=== PATIENT | female | born 1985 | race American Indian/Alaskan Native ===

== ENCOUNTER 2016-09-06 02:42 | Emergency (ER) | payer MEDICAID ==
[2016-09-06] MEDS ORDERED: TYLENOL PO ONE ×2 (11:55→12:18)
--- NOTE | 2016-09-06 11:55 | Emergency Department Report ---
HPI - General Chief Complaint: Upper Respiratory Infection Time Seen by Provider: 09/06/16 11:26 - HPI HPI: Patient here reports that she's having cough and chills throat that has been going on for a couple weeks. She said it started out with coughing a couple weeks ago and now she is having sore throat and chills. Denies taking any over- the-counter medication. Patient is 17 weeks and she is [employer]. She said that her last [employer] visit she had ultrasound shows that the baby was in her uterus and no problem with the baby per patient. Patient denies any abdominal pain, nausea vomiting, vaginal bleeding or discharge. Eyes any urinary burning frequency or urgency. Denies any drooling or difficulty swallowing. Denies any shortness of breath. Reports nasal congestion with sinus pressure. ED Past Medical Hx - Past Medical History Previous Medical History?: No Hx Hypertension: No Hx Congestive Heart Failure: No Hx Diabetes: No Hx Deep Vein Thrombosis: No Hx Renal Disease: No Hx Sickle Cell Disease: No Hx Seizures: No Hx Asthma: No Hx COPD: No Hx HIV: No - Surgical History Past Surgical History?: Yes Additional Surgical History: x1 - Family History Family history: no significant - Social History Smoking Status: Never Smoker Substance Use Type: None - Medications Home Medications: Home Medications Medication Instructions Recorded Confirmed Last Taken Type Acetaminophen [Acetaminophen TAB] 500 mg PO Q8H PRN #15 tablet 09/06/16 Unknown Rx Azithromycin [Zithromax Z-LUCÍA] 250 mg PO DAILY #6 tab 09/06/16 Unknown Rx guaiFENesin [Mucinex] 600 mg PO BID #10 tab.er.12h 09/06/16 Unknown Rx ED Review of Systems ROS: Stated complaint: COUGH/SORE THROAT Other details as noted in HPI Comment: All other systems reviewed and negative Constitutional: chills Eyes: denies: eye discharge ENT: throat pain, congestion. denies: ear pain Respiratory: cough. denies: shortness of breath, SOB with exertion, SOB at rest , stridor, wheezing Cardiovascular: denies: chest pain, palpitations, edema, syncope Gastrointestinal: denies: abdominal pain, nausea, vomiting Genitourinary: denies: urgency, dysuria, frequency, hematuria, discharge, abnormal menses Musculoskeletal: denies: back pain, arthralgia Skin: denies: rash Neurological: denies: headache, weakness, numbness, paresthesias, abnormal gait , vertigo Physical Exam - Physical Exam Vital Signs: Vital Signs 09/06/16 02:56 Temperature 99.7 F H Pulse Rate 110 H Respiratory 18 Rate Blood Pressure 120/76 O2 Sat by Pulse 97 Oximetry Vital Signs 09/06/16 09/06/16 02:56 12:50 Temperature 99.7 F H 99.5 F Pulse Rate 110 H 102 H Respiratory 18 18 Rate Blood Pressure 120/76 Blood Pressure 138/82 [Left] O2 Sat by Pulse 97 100 Oximetry General: This is a 31-year-old female well-nourished well-developed and nontoxic in appearance. Physical Exam: Head: Normocephalic atraumatic Mouth: Moist, no pharyngeal exudate or erythema. Uvula is midline and oral airway is patent. No facial swelling. No peritonsillar abscesses. Nose: Congested with erythema to mucosa. Clear Drainage. Maxillary and frontal sinuses nontender to palpate Neck: Supple, no C-spine tenderness, no tracheal deviation. Nontender to palpate. no adenopathy Ears: Bilateral TMs congested without erythema. Bilateral EAC without any redness swelling or drainage. Abdomen: Soft, nontender to palpate in all quadrants, normal bowel sounds in all quadrant and negative CVA tenderness bilaterally. Eyes: Bilateral pupils equal and reactive to light, bilateral EOM intact. Bilateral sclera and conjunctiva without injection. Normal accommodation. No Lungs: Clear to auscultate bilaterally no rhonchi wheezes or rales. Normal work of breathing . Patient with dry cough extremity; No CCE. +2 pulses. No neurovascular compromise Cardiovascular: S1-S2, Tachycardic @ 110 regular rhythm. No murmurs. Skin: clean Dry and intact no rash no lesions Psych: Normal mood and behavior ED Course Vital Signs 09/06/16 02:56 Temperature 99.7 F H Pulse Rate 110 H Respiratory 18 Rate Blood Pressure 120/76 O2 Sat by Pulse 97 Oximetry Vital Signs 09/06/16 09/06/16 02:56 12:50 Temperature 99.7 F H 99.5 F Pulse Rate 110 H 102 H Respiratory 18 18 Rate Blood Pressure 120/76 Blood Pressure 138/82 [Left] O2 Sat by Pulse 97 100 Oximetry heart tones at 153 bpm. - Reevaluation(s) Reevaluation #1: 04/04/17 12:51 Patient reevaluated and her temperature and heart rate trending down. I spoke with Dr. Chi was okay with patient being discharged home. He is able to tolerate oral liquids in emergency room. ED Medical Decision Making - Medical Decision Making ED course: Patient here complaining of cough, congestion and sore throat. Using Centor criteria ,strep throat was ruled out. is at 17 weeks. She is not having any related issues. heart tone 153 bpm. I discussed the patient that this most physical findings she has a upper respiratory tract infection and sinusitis. I discussed with her that medications been having her symptoms for 2 weeks I will go ahead and put her on antibiotic, Tylenol and Mucinex. I discussed with her that she needs to call her [employer] to let them know that she was seen in emergency room for sinus infection. Patient with heart rate of 110 and temperature is 99.9. She was given Tylenol 650 mg in emergency room which brought her temperature down to 99.5 and heart rate was down to 102. Patient feels better and she is drinking juice in emergency room without any difficulties. Discharged home with prescription for Z-Lucía, Tylenol and Mucinex. Critical care attestation.: If time is entered above; I have spent that time in minutes in the direct care of this critically ill patient, excluding procedure time. ED Disposition Clinical Impression: Sinusitis Qualifiers: Sinusitis location: unspecified location Chronicity: acute Recurrence: not specified as recurrent Qualified Code(s): J01.90 - Acute sinusitis, unspecified Upper respiratory infection Qualifiers: URI type: unspecified URI Qualified Code(s): J06.9 - Acute upper respiratory infection, unspecified Acute pharyngitis Qualifiers: Pharyngitis/tonsillitis etiology: unspecified etiology Qualified Code(s): J02.9 - Acute pharyngitis, unspecified Disposition: DISCHARGED TO HOME OR SELFCARE Is pt being admited?: No Does the pt Need Aspirin: No Condition: Stable Instructions: Upper Respiratory Infection (ED), Pharyngitis (ED), Sinusitis (ED ) Additional Instructions: Please using [id number] sinus nasal wash to flush sinuses out Call your [employer] today to let them know that you were in the emergency room and treated for sinus infection. Prescriptions: Acetaminophen [Acetaminophen TAB] 500 mg PO Q8H PRN #15 tablet PRN Reason: Fever, sore throat Azithromycin [Zithromax Z-LUCÍA] 250 mg PO DAILY #6 tab guaiFENesin [Mucinex] 600 mg PO BID #10 tab.er.12h Referrals: PRIMARY CARE, [Primary Care Provider] - 2-3 Days Forms: Work/School Release Form(ED)
[2016-09-06 12:51] VITALS: BP 138/82
== END 2016-09-06 13:17 | disposition home or self-care (01) ==
LOC: ED 02:42
DX: O99.512 Diseases of the respiratory system complicating pregnancy, second trimester (principal); J06.9 Acute upper respiratory infection, unspecified; J02.9 Acute pharyngitis, unspecified; J01.90 Acute sinusitis, unspecified; Z3A.17 17 weeks gestation of pregnancy
CPT/HCPCS: 99282

== ENCOUNTER 2017-02-08 09:37 | Inpatient (IN) | payer MEDICAID ==
--- NOTE | 2017-02-07 17:58 | History and Physical Report ---
History of Present Illness Date of examination: 02/03/17 Date of admission: 02/08/17 Chief complaint: here for repeat c/s History of present illness: Pt is here for repeat c/s. All risk, benefits, and alternatives were d/w pt. Consents were signed and placed on the chart. EDC Calculations LMP: 02/12/2017 EDC Confirmation: 02/12/2017 Gestational Age: 10 5/7 weeks Past History : 3 Term Births: 1 Premature Births: 0 Living Children: 1 Para: 1 Mult. Births: 0 Prev : 1 Prev. attempt? 0 Aborta: 1 Elect. Ab: 0 Spont. Ab: 1 Ectopics: 0 # 1 Delivery date: 2002 Weeks Gestation: ? [place] [facility] [place] Comments: No D&C # 2 Delivery date: 04/09/2013 Weeks Gestation: 40 Delivery type: Hours of labor: 12 Anesthesia type: epidural [facility] Sex: Male weight: 8-7 Name: Marcelo Comments: Failed induction NRFHT Past Medical History: Negative Past Medical History Past Surgical History: (04/09/2013) Family History Summary: Other family member - Has No Family History of Ovarvian Cancer - Entered On: Other family member - Has No Family History of Colon Cancer - Entered On: 2016 Other family member - Has No Family History of Breast Cancer - Entered On: 2016 Other family member - Has Family History of Hypertension - Entered On: 07/22/2016 Other family member - Has Family History of Diabetes - Entered On: 07/22/2016 Other family member - Has Family History of CVA or Stroke - Entered On: 2016 Social History: Logid[employer] unemployed Patient is single Risk Factors: Smoked Tobacco Use: Never smoker Alcohol use: yes Drinks per day: social Dietary Counseling: pn yes Past Medical History Surgery (Non-mixer blender): (04/09/2013) Abnormal PAP: negative Uterine Anomaly: negative Social Hx: Logid[employer] unemployed Patient is single Infection History Hx of STD: none Personal hx. of genital herpes: no Partner hx. of genital herpes: no Genetic History Congenital Heart Defect: Mom: no Dad: no Norbert Disease: Mom: no Dad: no Thalassemia Mom: no Dad: no Neural Tube Defect Mom: no Dad: no Down's Syndrome Mom: no Dad: no Jose-Sachs Mom: no Dad: no Sickle Cell Disease/Trait Mom: no Dad: no Hemophilia Mom: no Dad: no Muscular Dystrophy Mom: no Dad: no Cystic Fibrosis Mom: no Dad: no [place] Chorea Mom: no Dad: no Mental Retardation Mom: no Dad: no Fragile X Mom: no Dad: no Other Genetic/Chromosomal Disorder Mom: no Dad: no Child w/other defect Mom: no Dad: no Active Medications: FORMULA 27-1 MG ORAL TABS ( VIT-FE FUMARATE-FA) 1 po q day as directed Current Allergies: No known allergies Past History Past Medical History: no pertinent history Past Surgical History: section - Obstetrical History : 2 Medications and Allergies Allergies Allergy/AdvReac Type Severity Reaction Status Date / Time No Known Allergies Allergy Verified 08/07/15 10:13 Home Medications Medication Instructions Recorded Confirmed Last Taken Type Acetaminophen [Acetaminophen TAB] 500 mg PO Q8H PRN #15 tablet 09/06/16 Unknown Rx Azithromycin [Zithromax Z-LUCÍA] 250 mg PO DAILY #6 tab 09/06/16 Unknown Rx guaiFENesin [Mucinex] 600 mg PO BID #10 tab.er.12h 09/06/16 Unknown Rx Active Meds: Active Medications Citric Acid/Sodium Citrate (Bicitra) 30 ml PO ONCE ONE Stop: 02/08/17 06:01 Famotidine (Pepcid) 20 mg IV ONCE ONE Stop: 02/08/17 06:01 Cefazolin Sodium (Ancef/Sterile Water 2 Gm/20 Ml) 2 gm in 20 mls @ 80 mls/hr IV PREOP NR PRN Reason: Protocol Lactated Ringer's (Lactated Ringers) 1,000 mls @ 2,250 mls/hr IV PREOP MARCELLA Stop: 02/08/17 18:27 Oxytocin/Sodium Chloride (Pitocin/Ns 20 Unit/1000ml Drip) 20 units in 1,000 mls @ 0 mls/hr IV TITR MARCELLA PRN Reason: As Directed Metoclopramide HCl (Reglan) 10 mg IV ONCE ONE Stop: 02/08/17 06:01 - Physical Exam Cardiovascular: Normal S1, Normal S2 Lungs: Positive: Clear to auscultation, Normal air movement Abdomen: Positive: normal appearance, soft Genitourinary (Female): Positive: normal external genitalia, normal perenium - Obstetrical FHR: auscultation normal Results All other labs normal. Assessment and Plan - Patient Problems (1) 39 weeks gestation of Current Visit: Yes Status: Acute (2) Previous delivery affecting Current Visit: Yes Status: Acute Plan to address problem: -consents signed -to OR for repeat c/s
[2017-02-08] MEDS ORDERED: ANCEF/STERILE WATER 2 GM/20 ML 2 GM/20 ML SYRINGE IV NR (10:00)
[2017-02-08] MEDS ORDERED: PEPCID IV NR (10:00)
[2017-02-08] MEDS ORDERED: REGLAN IV NR (10:00)
[2017-02-08] MEDS ORDERED: BICITRA PO NR (10:00)
[2017-02-08] MEDS ORDERED: PITOCin/NS 20 UNIT/1000ML DRIP 20 UNITS/1,000 ML BAG IV SCH (10:00)
[2017-02-08] MEDS: LACTATED RINGERS 1,000 ML IV SCH ×2 (10:20→13:47)
[2017-02-08 10:56] LABS: Basophils % (Auto) 0.3 % (0.0-1.8); Eosinophils % (Auto) 0.4 % (0.0-4.3); Hematocrit 30.6 % (30.3-42.9); Mean Corpuscular HGB Conc 33 % (30-34); Mean Corpuscular Volume 79 fl (79-97); Platelet Count 320 K/mm3 (140-440); Red Blood Count 3.88 M/mm3 (3.65-5.03); Red Cell Distribution Width 16.9 % (13.2-15.2); White Blood Count 8.6 K/mm3 (4.5-11.0)
[2017-02-08 10:58] LABS: Mean Corpuscular Hemoglobin 26 pg (28-32)
[2017-02-08] MEDS ORDERED: BENADRYL IV PRN ×2 (11:27→11:32)
[2017-02-08] MEDS ORDERED: TORADOL IV PRN (11:27)
[2017-02-08] MEDS ORDERED: ZOFRAN IV PRN (11:27)
[2017-02-08] MEDS ORDERED: DILAUDID IV PRN (11:27)
[2017-02-08] MEDS ORDERED: NARCAN 0.4 MG/1 ML IV PRN ×2 (11:27→13:07)
--- NOTE | 2017-02-08 11:27 | Anesthesia Day of Surgery ---
Anesthesia Day of Surgery - Day of Surgery Patient Examined: Yes Patient H&P Reviewed: Yes Patient is NPO: Yes
--- NOTE | 2017-02-08 11:27 | Anesthesia Consultation ---
Anesthesia Consult and Med Hx Date of service: 02/08/17 - Airway Anesthetic Teeth Evaluation: Good ROM Head & Neck: Adequate Mental/Hyoid Distance: Adequate Mallampati Class: Class II Intubation Access Assessment: Probably Good - Pre-Operative Health Status ASA Pre-Surgery Classification: ASA2 Proposed Anesthetic Plan: Epidural, Spinal - Pulmonary Hx Asthma: No COPD: No Hx Pneumonia: No - Cardiovascular System Hx Hypertension: No - Central Nervous System Hx Seizures: No Hx Psychiatric Problems: No - Endocrine Hx Renal Disease: No Hx End Stage Renal Disease: No Hx Hypothyroidism: No Hx Hyperthyroidism: No - Hematic Hx Anemia: No Hx Sickle Cell Disease: No - Other Systems Hx Alcohol Use: No
[2017-02-08] MEDS ORDERED: MORPHINE IV PRN ×2 (11:32→11:34)
[2017-02-08] MEDS ORDERED: MORPHINE ONE (11:34)
[2017-02-08] MEDS ORDERED: SODIUM CHLORIDE FLUSH SYRINGE 10 ML IV SCH (12:00)
[2017-02-08] MEDS ORDERED: ZOFRAN ONE (12:38)
[2017-02-08] MEDS ORDERED: TORADOL ONE (12:46)
[2017-02-08] MEDS ORDERED: NACL 0.9% 1000 ML 1,000 ML ONE (12:48)
--- NOTE | 2017-02-08 13:05 | Operative Report ---
Operative Report Operative Report: Date of procedure: 02/08/2017 Pre-operative diagnosis: 39 weeks gestation Previous section 1 Post-operative diagnosis: Same Procedure name(s): Repeat low transverse section via Pfannenstiel skin incision Surgeon: Dr. Meeks Train Starter: SATURNINO Anesthesia: Epidural EBL: 800 mL Urine output:25 mL of urine out clear at the end of the procedure Fluids: 1300 mL Findings: Liveborn female weight 7 lbs. 4 oz. Apgars of 8 and 9 at one and 5 minutes Grossly normal fallopian tubes and ovaries bilaterally Normal uterus Indications: Patient presents for repeat section. All risks benefits and alternatives were discussed with the patient. Consents were signed and placed on the chart. Patient was given ample time to ask questions regarding procedure prior to signing consent forms. Procedure: Patient was taking to the operating room. Patient was then prepped and draped in sterile fashion after anesthesia was found to be adequate. A low transverse skin incision was made with the scalpel through previous incisional scar and carried down to the underlying layer of fascia with the Bovie. The fascia was then incised in the midline and this incision was extended bilaterally with the Bovie. The superior aspect of the fascia was grasped with Travis clamps tented upward and dissected off of the anterior rectus muscles with the scalpel. In similar fashion the inferior aspect of the fascia was grasped with Travis clamps tented upward and dissected off of the anterior rectus muscles. The rectus muscles were then bluntly divided in the midline. The peritoneum was identified and entered into sharply. The Feliberto retractor was placed. The bladder blade was placed. The bladder flap was created using Metzenbaum scissors. The bladder blade was replaced. A lower transverse uterine incision was made with the scalpel and extended bilaterally with the bandage scissors. Artificial rupture of membranes was performed yielding clear amniotic fluid. The 's head was then delivered atraumatically. The anterior shoulder and rest of delivered without difficulty. Nuchal cord 1 was noted and easily reduced. The umbilical cord was clamped x2. The cord was cut. The was then placed in sterile bassinet. Cord blood was collected. The placenta was manually extracted in its entirety. The uterus was exteriorized and cleared of all clots and debris. The uterine incision was closed using 0 Vicryl in a running locking fashion. A second imbricating layer of the same suture was then created. The posterior cul-de-sac was copiously irrigated. The uterus was returned to the abdomen. The gutters were also irrigated. The anterior rectus muscles were reapproximated using 3-0 Vicryl. The anterior rectus fascia was reapproximated using 0 Vicryl in a running fashion. The subcuticular fat was reapproximated using 2-0 Vicryl in a running fashion. The skin was reapproximated with 4-0 Monocryl in a subcuticular stitch. The patient tolerated the procedure well. Sponge lap and needle counts were all correct x3. Patient was taken to the recovery room awake and in stable condition.
[2017-02-08] MEDS ORDERED: LANSINOH TP PRN (13:07)
[2017-02-08] MEDS ORDERED: TUCKS PAD TP PRN (13:07)
[2017-02-08] MEDS ORDERED: NORCO 5/325 PO PRN (13:07)
--- NOTE | 2017-02-08 14:48 | Post Anesthesia Evaluation ---
- Post Anesthesia Evaluation Patient Participated: Yes Airway Patent: Yes Stable Respiratory Function: Yes Nausea/Vomiting: No Temp > 96.8F: Yes Pain Manageable: Yes Adequeate Hydration: Yes Anesthesia Complications: No Block Receding Appropriately: Not Applicable Patient on Ventilator: No
[2017-02-08] MEDS: ANCEF/NS 1 GM/50 ML 1 GM/50 ML BAG IV SCH (18:07)
[2017-02-08] MEDS ORDERED: LACTATED RINGERS 1,000 ML IV SCH (22:00)
[2017-02-09 01:17] LABS: Hematocrit 28.8 % (30.3-42.9); Hemoglobin 9.4 gm/dl (10.1-14.3)
[2017-02-09] MEDS: ANCEF/NS 1 GM/50 ML 1 GM/50 ML BAG IV SCH (02:04)
[2017-02-09] MEDS ORDERED: BOOSTRIX IM ONE (06:08)
--- NOTE | 2017-02-09 06:13 | Progress Note ---
Assessment and Plan - Patient Problems (1) delivery delivered Onset Date: ~02/08/17 Current Visit: Yes Status: Acute Plan to address problem: pt resting quietly no c/o voiced VSS FF below umb Lochia small Dressing D&I, to be removed this AM. H&H 03/02 drop r/t blood loss from surgery Pt is asymptomatic Doing well s/p c/s. P: continue pathway Advance diet and activity. Pt request d/c tomorrow. Subjective - Subjective Date of service: 02/09/17 (no c/o voiced) Principal diagnosis: Day #1 s/p section Patient reports: appetite normal, voiding normally, pain well controlled, ambulating normally : doing well Objective - Vital Signs Latest vital signs: Vital Signs Temp Pulse Resp BP BP Pulse Ox 02/09/17 00:30 98.8 F 94 H 18 113/58 02/08/17 20:40 98.5 F 96 H 100/59 02/08/17 17:24 98.4 F 19 98/61 02/08/17 14:00 86 10 L 118/59 100 02/08/17 13:50 92 H 21 120/63 99 02/08/17 13:40 97.5 F L 102 H 19 127/68 104/56 98 02/08/17 13:30 85 13 113/61 99 02/08/17 13:20 84 13 119/57 100 02/08/17 13:10 87 20 124/63 98 02/08/17 13:00 87 20 120/60 98 02/08/17 12:51 107 H 14 100 02/08/17 11:06 105 H 137/48 Intake and Output 02/08/17 02/08/17 02/09/17 14:59 22:59 06:59 Intake Total 2575 925 480 Output Total 125 1000 Balance 2450 925 -520 Intake: IV 2575 925 ANCEF/NS 1 GM/50 ML 1 gm 50 In 50 ml @ 100 mls/hr IV Q8H MARCELLA Rx#:[id number] Lactated Ringers 1,000 ml 1000 @ 2250 mls/hr IV PREOP MARCELLA Rx#:[id number] Left Hand 125 PITOCin/NS 20 UNIT/1000ML 875 DRIP 20 units In 1,000 ml @ As Directed IV TITR MARCELLA Rx#:[id number] Intake, Free Water 480 Output: Urine 125 1000 Indwelling Catheter 1000 Other: Total, Output Amount 1000 Weight 223 lb Estimated Blood Loss 800 Patient Weight 02/09/17 06:59 Weight 223 lb - Exam Breasts: Present: normal Cardiovascular: Present: Regular rate Lungs: Present: Normal air movement Abdomen: Present: normal appearance, soft, normal bowel sounds Uterus: Present: normal, firm, fundal height below umbilicus Extremities: Present: normal Deep Tendon Reflex Grade: Normal +2 Incision: Present: normal, dry, intact - Labs Labs: Abnormal lab results 02/08/17 02/09/17 Range/Units 10:30 00:43 Hgb 10.0 L 9.4 L (10.1-14.3) gm/dl Hct 28.8 L (30.3-42.9) % MCH 26 L (28-32) pg RDW 16.9 H (13.2-15.2) % [place] % (Auto) 8.8 H (0.0-7.3) %
[2017-02-09] MEDS ORDERED: BENADRYL PO PRN (09:00)
[2017-02-09] MEDS ORDERED: NORCO 5/325 PO PRN (09:00)
[2017-02-09] MEDS: MOTRIN PO PRN ×2 (12:49→19:25)
--- NOTE | 2017-02-09 13:23 | Progress Note ---
Subjective Date of service: 02/09/17 Principal diagnosis: Day #1 s/p section Interval history: 1st POD after Patient is in the bed, comfortable. Pain is well under control. Ambulated well. No residual neurological deficit. Pruritus is mostly controlled with benadryl. No anesthesia complications. Objective - Constitutional Vitals: Vital Signs - 12hr 02/09/17 02/09/17 02/09/17 04:58 08:06 08:14 Temperature 98.6 F 98.3 F 98.3 F Pulse Rate 87 66 76 Respiratory 20 18 20 Rate Blood Pressure 108/50 [Left] Blood Pressure 101/52 108/76 [Right] 02/09/17 02/09/17 09:22 12:49 Temperature Pulse Rate Respiratory 20 20 Rate Blood Pressure [Left] Blood Pressure [Right] - Labs CBC & Chem 7: 02/09/17 00:43 Labs: Abnormal lab results 02/09/17 Range/Units 00:43 Hgb 9.4 L (10.1-14.3) gm/dl Hct 28.8 L (30.3-42.9) %
[2017-02-09] MEDS ORDERED: VISTARIL IM ONE (14:00)
[2017-02-09] MEDS: PERCOCET 5/325 PO PRN (19:25)
[2017-02-10] MEDS: MOTRIN PO PRN ×3 (02:49→14:42)
[2017-02-10] MEDS: PERCOCET 5/325 PO PRN ×3 (02:50→14:41)
[2017-02-10] MEDS ORDERED: MILK OF MAGNESIA PO PRN (06:09)
--- NOTE | 2017-02-10 08:21 | Progress Note ---
Assessment and Plan patient doing well, no complaints. desires d/c home today. VSSAF, H&H stable, asymptomatic for anemia, breast feeding without difficulty. plan for d/c home today with routine f/u in office. - Patient Problems (1) delivery delivered Onset Date: ~02/08/17 Current Visit: Yes Status: Acute Subjective - Subjective Date of service: 02/10/17 Principal diagnosis: Day #2 s/p section Patient reports: appetite normal, voiding normally, pain well controlled, flatus , ambulating normally, no dizzy ambulation, no nauseated [place]: doing well, nursing well Objective - Vital Signs Latest vital signs: Vital Signs Temp Pulse Resp BP 02/10/17 00:00 98.1 F 76 112/73 02/09/17 16:41 98.9 F 84 20 120/84 02/09/17 12:49 20 02/09/17 12:09 97.0 F L 80 20 110/70 02/09/17 09:22 20 Intake and Output 02/09/17 02/10/17 02/10/17 22:59 06:59 14:59 Intake Total 480 120 Balance 480 120 Intake: Oral 480 120 Other: Total, Intake Amount 240 120 Voiding Method Toilet # Voids 1 Void 1 1 - Exam Breasts: Present: normal, Cardiovascular: Present: Regular rate Lungs: Present: Clear to auscultation, Normal air movement Abdomen: Present: normal appearance, soft, normal bowel sounds Uterus: Present: normal, firm, fundal height at umbilicus Extremities: Present: normal Incision: Present: normal, dry, intact
--- NOTE | 2017-02-10 08:23 | Discharge Summary ---
Providers - Providers Date of Admission: 02/08/17 09:37 Date of discharge: 02/10/17 (desires d/c home) Attending physician: LESLY WHITMORE Primary care physician: LESLY WHITMORE Hospitalization Reason for admission: section Delivery: Procedure: repeat low transverse Incision: normal, dry, intact Other procedures: none complications: none Discharge diagnosis: IUP at term delivered baby: female Hospital course: uncomplicated repeat c/s Condition at discharge: Good Disposition: DC-01 TO HOME OR SELFCARE - Discharge Diagnoses (1) delivery delivered Status: Acute Plan - Discharge Medications Prescriptions: Docusate Sodium [Colace] 100 mg PO BID PRN #30 capsule PRN Reason: Constipation Ferrous Sulfate [Feosol 325 MG tab] 325 mg PO QDAY #30 tablet Ibuprofen [Motrin 800 MG tab] 800 mg PO Q8HR PRN #30 tablet PRN Reason: Pain oxyCODONE /ACETAMINOPHEN [Percocet 5/325] 1 tab PO Q4HR #30 tab - Provider Discharge Summary Activity: routine, no sex for 6 weeks, no heavy lifting 4 weeks, no strenuous exercise Diet: routine Instructions: routine Additional instructions: [] Smoking cessation referral if applicable(refer to patient education folder for contact #) [] Refer to [facility]'s [facility] Booklet Call your doctor immediately for: * Fever > 100.5 * Heavy vaginal bleeding ( >1 pad per hour) * Severe persistent headache * Shortness of breath * Reddened, hot, painful area to leg or breast * Drainage or odor from incision. * Keep incision clean and dry at all times and follow doctor's instructions regarding bathing/showering - Follow up plan Follow up: LESLY WHITMORE MD [Primary Care Provider] - 7 Days (Congratulations! please keep your appointment next week for your incision check. Call [phone] with any questions or concerns. )
[2017-02-10 15:29] VITALS: BP 112/74
== END 2017-02-10 15:01 | disposition home or self-care (01) | DRG 765 ==
LOC: APU 09:37 → OB 14:11
PROVIDERS: ADMIT Obstetrics & Gynecology; ATTEND Obstetrics & Gynecology
PROC: 10D00Z1 Extraction of Products of Conception, Low, Open Approach (ICD-10-PCS; principal; 2017-02-08)
PROC: 3E0234Z Introduction of Serum, Toxoid and Vaccine into Muscle, Percutaneous Approach (ICD-10-PCS; 2017-02-08)
DX: O34.211 Maternal care for low transverse scar from previous cesarean delivery (principal); D62 Acute posthemorrhagic anemia; Z3A.39 39 weeks gestation of pregnancy; Z37.0 Single live birth; O69.81X0 Labor and delivery complicated by cord around neck, without compression, not applicable or unspecified; Z23 Encounter for immunization; O90.81 Anemia of the puerperium
CPT/HCPCS: 36415; 85014; 85018; 85025; 86850; 86900; 86901; 99211; A6250; C9250; G0463; J0690; J1200; J1885; J2270; J2405; J2590; J2765; J3410; J7030; J7120

== ENCOUNTER 2017-02-12 00:58 | Emergency (ER) | payer MEDICAID ==
[2017-02-12 02:11] LABS: Basophils % (Auto) 0.3 % (0.0-1.8); Eosinophils % (Auto) 2.1 % (0.0-4.3); Hematocrit 29.3 % (30.3-42.9); Hemoglobin 9.5 gm/dl (10.1-14.3); Mean Corpuscular HGB Conc 33 % (30-34); Mean Corpuscular Volume 80 fl (79-97); Platelet Count 346 K/mm3 (140-440); Red Blood Count 3.68 M/mm3 (3.65-5.03); Red Cell Distribution Width 17.3 % (13.2-15.2); White Blood Count 8.6 K/mm3 (4.5-11.0)
[2017-02-12 02:15] LABS: Mean Corpuscular Hemoglobin 26 pg (28-32)
[2017-02-12 02:18] LABS: Anion Gap 18 mmol/L; BUN/Creatinine Ratio 16.25; Blood Urea Nitrogen 13 mg/dL (7-17); Calcium 8.5 mg/dL (8.4-10.2); Carbon Dioxide 22 mmol/L (22-30); Chloride 102.7 mmol/L (98-107); Creatine Kinase 377 units/L (30-135); Glucose 86 mg/dL (65-100); Potassium 3.9 mmol/L (3.6-5.0); Sodium 139 mmol/L (137-145)
[2017-02-12 06:50] LABS: INR 0.93 (0.87-1.13)
--- NOTE | 2017-02-12 09:00 | Emergency Department Report ---
ED Extremity Problem HPI - General Chief complaint: Extremity Injury, Lower Stated complaint: POST DELIVERY LEG PAIN Time Seen by Provider: 02/12/17 08:39 Source: patient Mode of arrival: Wheelchair Limitations: No Limitations - History of Present Illness Initial comments: 31 years old female status post section one week ago coming today was bilateral lower extremity pain and swelling started since left the hospital. Patient denied any chest pain or shortness of breath. Denied any fever or abdominal pain. MD Complaint: extremity pain, extremity swelling -: Gradual Severity scale (0 -10): 5 Quality: dull - Related Data Previous Rx's Medication Instructions Recorded Last Taken Type Acetaminophen [Acetaminophen TAB] 500 mg PO Q8H PRN #15 tablet 09/06/16 Unknown Rx Azithromycin [Zithromax Z-LUCÍA] 250 mg PO DAILY #6 tab 09/06/16 Unknown Rx guaiFENesin [Mucinex] 600 mg PO BID #10 tab.er.12h 09/06/16 Unknown Rx Docusate Sodium [Colace] 100 mg PO BID PRN #30 capsule 02/08/17 Unknown Rx Ferrous Sulfate [Feosol 325 MG tab] 325 mg PO QDAY #30 tablet 02/08/17 Unknown Rx Ibuprofen [Motrin 800 MG tab] 800 mg PO Q8HR PRN #30 tablet 02/08/17 Unknown Rx oxyCODONE /ACETAMINOPHEN [Percocet 1 tab PO Q4HR #30 tab 02/08/17 Unknown Rx 5/325] Allergies Allergy/AdvReac Type Severity Reaction Status Date / Time No Known Allergies Allergy Verified 08/07/15 10:13 ED Review of Systems ROS: Stated complaint: POST DELIVERY LEG PAIN Other details as noted in HPI Comment: All other systems reviewed and negative Constitutional: denies: chills, fever Respiratory: denies: cough, shortness of breath Cardiovascular: denies: chest pain, palpitations Gastrointestinal: denies: abdominal pain, nausea, vomiting Neurological: denies: headache ED Past Medical Hx - Past Medical History Previous Medical History?: Yes Hx Hypertension: No Hx Congestive Heart Failure: No Hx Diabetes: No Hx Deep Vein Thrombosis: No Hx Renal Disease: No Hx Sickle Cell Disease: No Hx Seizures: No Hx Asthma: No Hx COPD: No Hx HIV: No - Surgical History Past Surgical History?: Yes Additional Surgical History: x1 - Social History Smoking Status: Never Smoker - Medications Home Medications: Home Medications Medication Instructions Recorded Confirmed Last Taken Type Acetaminophen [Acetaminophen TAB] 500 mg PO Q8H PRN #15 tablet 09/06/16 Unknown Rx Azithromycin [Zithromax Z-LUCÍA] 250 mg PO DAILY #6 tab 09/06/16 Unknown Rx guaiFENesin [Mucinex] 600 mg PO BID #10 tab.er.12h 09/06/16 Unknown Rx Docusate Sodium [Colace] 100 mg PO BID PRN #30 capsule 02/08/17 Unknown Rx Ferrous Sulfate [Feosol 325 MG tab] 325 mg PO QDAY #30 tablet 02/08/17 Unknown Rx Ibuprofen [Motrin 800 MG tab] 800 mg PO Q8HR PRN #30 tablet 02/08/17 Unknown Rx oxyCODONE /ACETAMINOPHEN [Percocet 1 tab PO Q4HR #30 tab 02/08/17 Unknown Rx 5/325] ED Physical Exam - General Limitations: No Limitations General appearance: alert, in no apparent distress - Eye Eye exam: Present: normal appearance - ENT ENT exam: Present: normal exam - Neck Neck exam: Present: normal inspection - Respiratory Respiratory exam: Present: normal lung sounds bilaterally. Absent: respiratory distress, rales, decreased breath sounds - Cardiovascular Cardiovascular Exam: Present: regular rate, normal rhythm, normal heart sounds - GI/Abdominal GI/Abdominal exam: Present: soft, tenderness (appropriate tenderness secondary to recent section). Absent: distended, guarding, rebound, rigid, normal bowel sounds, mass, bruit, pulsatile mass, hernia - Extremities Exam Extremities exam: Present: normal inspection. Absent: full ROM, tenderness, normal capillary refill, pedal edema, calf tenderness - Back Exam Back exam: Present: normal inspection. Absent: CVA tenderness (R), CVA tenderness (L) - Neurological Exam Neurological exam: Present: alert, oriented X3, CN II-XII intact - Skin Skin exam: Present: warm, intact ED Course Vital Signs 02/12/17 02/12/17 02/12/17 01:19 05:45 06:01 Temperature 98.3 F Pulse Rate 91 H 99 H 99 H Respiratory 17 16 23 Rate Blood Pressure 130/83 129/85 Blood Pressure [Right] O2 Sat by Pulse 99 100 Oximetry 02/12/17 02/12/17 02/12/17 06:15 06:30 06:40 Temperature Pulse Rate 96 H 82 Respiratory 26 H 18 Rate Blood Pressure 129/85 126/69 Blood Pressure [Right] O2 Sat by Pulse 100 100 Oximetry 02/12/17 09:09 Temperature Pulse Rate 80 Respiratory 17 Rate Blood Pressure Blood Pressure 127/88 [Right] O2 Sat by Pulse 99 Oximetry - Reevaluation(s) Reevaluation #1: 02/12/17 12:37 Patient stated that she is feeling better no symptoms at this moment. ED Medical Decision Making - Lab Data Result diagrams: 02/12/17 01:45 02/12/17 01:45 Critical care attestation.: If time is entered above; I have spent that time in minutes in the direct care of this critically ill patient, excluding procedure time. ED Disposition Clinical Impression: Leg pain, bilateral Disposition: DC-01 TO HOME OR SELFCARE Is pt being admited?: No Does the pt Need Aspirin: No Condition: Stable Instructions: Leg Edema (ED) Referrals: PRIMARY CARE, [Primary Care Provider] - 3-5 Days
[2017-02-12 09:28] LABS: Bacteria,Urine 3+ /HPF (Negative); Bilirubin,Urine NEG (Negative); Blood,Urine LG (Negative); Ketones,Urine NEG (Negative); Leukocyte Esterase,Urine LG (Negative); Nitrite,Urine NEG (Negative); Urobilinogen,Urine < 2.0 mg/dL (<2.0)
[2017-02-12 12:38] VITALS: BP 125/80
== END 2017-02-12 12:59 | disposition home or self-care (01) ==
LOC: ED 00:58
DX: M79.604 Pain in right leg (principal); M79.605 Pain in left leg
CPT/HCPCS: 36415; 80048; 81001; 82550; 83735; 85025; 85610; 93970

== ENCOUNTER 2017-12-15 08:53 | Emergency (ER) | payer MEDICAID ==
[2017-12-15 09:16] VITALS: BP 138/60
--- NOTE | 2017-12-15 09:52 | Emergency Department Report ---
ED Animal Bite HPI - General Chief Complaint: Animal Bite Stated Complaint: INSECT BITE Time Seen by Provider: 12/15/17 09:45 Source: patient Mode of arrival: Ambulatory Limitations: No Limitations - History of Present Illness Initial Comments: Ms Sarabia is a 32 year-old woman who presents after insect bite. Stung on the right upper arm by large flying insect about 810 am. has localized pain and swelling. no chest pain, no trouble breathing, no mouth swelling. No other complaints. MD Complaint: other (insect bite) - Related Data Previous Rx's Medication Instructions Recorded Last Taken Type Acetaminophen [Acetaminophen TAB] 500 mg PO Q8H PRN #15 tablet 09/06/16 Unknown Rx Azithromycin [Zithromax Z-LUCÍA] 250 mg PO DAILY #6 tab 09/06/16 Unknown Rx guaiFENesin [Mucinex] 600 mg PO BID #10 tab.er.12h 09/06/16 Unknown Rx Docusate Sodium [Colace] 100 mg PO BID PRN #30 capsule 02/08/17 Unknown Rx Ferrous Sulfate [Feosol 325 MG tab] 325 mg PO QDAY #30 tablet 02/08/17 Unknown Rx Ibuprofen [Motrin 800 MG tab] 800 mg PO Q8HR PRN #30 tablet 02/08/17 Unknown Rx oxyCODONE /ACETAMINOPHEN [Percocet 1 tab PO Q4HR #30 tab 02/08/17 Unknown Rx 5/325] Allergies Allergy/AdvReac Type Severity Reaction Status Date / Time No Known Allergies Allergy Verified 08/07/15 10:13 ED Review of Systems ROS: Stated complaint: INSECT BITE Other details as noted in HPI Comment: All other systems reviewed and negative ED Past Medical Hx - Past Medical History Hx Hypertension: No Hx Congestive Heart Failure: No Hx Diabetes: No Hx Deep Vein Thrombosis: No Hx Renal Disease: No Hx Sickle Cell Disease: No Hx Seizures: No Hx Asthma: No Hx COPD: No Hx HIV: No - Surgical History Additional Surgical History: x1 - Social History Smoking Status: Never Smoker Substance Use Type: None - Medications Home Medications: Home Medications Medication Instructions Recorded Confirmed Last Taken Type Acetaminophen [Acetaminophen TAB] 500 mg PO Q8H PRN #15 tablet 09/06/16 Unknown Rx Azithromycin [Zithromax Z-LUCÍA] 250 mg PO DAILY #6 tab 09/06/16 Unknown Rx guaiFENesin [Mucinex] 600 mg PO BID #10 tab.er.12h 09/06/16 Unknown Rx Docusate Sodium [Colace] 100 mg PO BID PRN #30 capsule 02/08/17 Unknown Rx Ferrous Sulfate [Feosol 325 MG tab] 325 mg PO QDAY #30 tablet 02/08/17 Unknown Rx Ibuprofen [Motrin 800 MG tab] 800 mg PO Q8HR PRN #30 tablet 02/08/17 Unknown Rx oxyCODONE /ACETAMINOPHEN [Percocet 1 tab PO Q4HR #30 tab 02/08/17 Unknown Rx 5/325] ED Physical Exam - General Limitations: No Limitations General appearance: alert, in no apparent distress - Head Head exam: Present: atraumatic, normocephalic - Eye Eye exam: Present: normal appearance, EOMI - ENT ENT exam: Present: normal exam, normal orophraynx, mucous membranes moist - Neck Neck exam: Present: normal inspection. Absent: tenderness, meningismus - Respiratory Respiratory exam: Present: normal lung sounds bilaterally. Absent: respiratory distress, wheezes - Cardiovascular Cardiovascular Exam: Present: regular rate, normal rhythm - Extremities Exam Extremities exam: Present: normal inspection. Absent: tenderness - Neurological Exam Neurological exam: Present: alert, oriented X3 - Psychiatric Psychiatric exam: Present: normal affect, normal mood - Skin Skin exam: Present: warm, dry, intact, other (Right upper arm with about 1mm spot with 3cm of surrounding erythema. no fluctuance) ED Course Vital Signs 12/15/17 09:10 Temperature 98.2 F Pulse Rate 99 H Respiratory 20 Rate Blood Pressure 138/60 O2 Sat by Pulse 100 Oximetry - Reevaluation(s) Reevaluation #1: 12/15/17 09:53 Ms Sarabia is a 32 year-old woman who presents afetr insect bite to arm. no signs /symptoms of allergic reaction. Exam unremarkable. Given benadryl and naproxen. DC to home. Local tissue swelling after insect bite/sting. given care instructions, return precautions. Critical care attestation.: If time is entered above; I have spent that time in minutes in the direct care of this critically ill patient, excluding procedure time. ED Disposition Clinical Impression: Insect bite of arm, right Qualifiers: Encounter type: initial encounter Qualified Code(s): S40.861A - Insect bite ( nonvenomous) of right upper arm, initial encounter; W57.XXXA - Bitten or stung by nonvenomous insect and other nonvenomous arthropods, initial encounter Disposition: DC-01 TO HOME OR SELFCARE Is pt being admited?: No Does the pt Need Aspirin: No Condition: Stable Instructions: Insect Bite or Sting (ED) Referrals: PRIMARY CARE, [Primary Care Provider] - 3-5 Days
[2017-12-15] MEDS ORDERED: BENADRYL PO ONE (09:55)
[2017-12-15] MEDS ORDERED: NAPROSYN PO ONE (09:55)
== END 2017-12-15 10:12 | disposition home or self-care (01) ==
LOC: ED 08:53
DX: S40.861A Insect bite (nonvenomous) of right upper arm, initial encounter (principal); W57.XXXA Bitten or stung by nonvenomous insect and other nonvenomous arthropods, initial encounter; Y93.89 Activity, other specified; Y99.8 Other external cause status; Y92.89 Other specified places as the place of occurrence of the external cause
CPT/HCPCS: 99282

== ENCOUNTER 2018-08-08 13:13 | Emergency (ER) | payer MEDICAID ==
--- NOTE | 2018-08-08 13:22 | Emergency Department Report ---
Blank Doc - Documentation Documentation: This is a 33-year-old female that presents with lower back pain. Denies any u rinary symptoms. Denies any injuries or trauma. This initial assessment/diagnostic orders/clinical plan/treatment(s) is/are subject to change based on patient's health status, clinical progression and re- assessment by fellow clinical providers in the ED. Further treatment and workup at subsequent clinical providers discretion. Patient/guardians urged not to elope from the ED as their condition may be serious if not clinically assessed and managed. Initial orders include: 1- Patient sent to [facility] for further evaluation and treatment 2- UA
[2018-08-08 13:27] VITALS: BP 161/117
--- NOTE | 2018-08-08 14:05 | Emergency Department Report ---
ED Back Pain/Injury HPI - General Chief Complaint: Back Pain/Injury Stated Complaint: BACK PAIN Time Seen by Provider: 08/08/18 13:21 Source: patient Limitations: No Limitations - History of Present Illness Initial Comments: CC: "My back is killing me." HPI: Ms. Sarabia is a very pleasant 33 yo female who presents with left lower back pain for several days. Pain appears to migrate all over her back including right upper back. Pain is worse after sitting at a desk for 8 hours a day. Pain is sharp. No treatment attempted prior to arrival. Has had upper respiratory infectious symptoms for the past one month. Mild cough. mild nasal congestion. MD Complaint: back pain -: Gradual, days(s) (several) Similar Symptoms Previously: No Radiation: none Severity: moderate Quality: sharp, aching Consistency: intermittent Worsens With: movement - Related Data Previous Rx's Medication Instructions Recorded Last Taken Type Acetaminophen [Acetaminophen TAB] 500 mg PO Q8H PRN #15 tablet 09/06/16 Unknown Rx Azithromycin [Zithromax Z-LUCÍA] 250 mg PO DAILY #6 tab 09/06/16 Unknown Rx guaiFENesin [Mucinex] 600 mg PO BID #10 tab.er.12h 09/06/16 Unknown Rx Docusate Sodium [Colace] 100 mg PO BID PRN #30 capsule 02/08/17 Unknown Rx Ferrous Sulfate [Feosol 325 MG tab] 325 mg PO QDAY #30 tablet 02/08/17 Unknown Rx Ibuprofen [Motrin 800 MG tab] 800 mg PO Q8HR PRN #30 tablet 02/08/17 Unknown Rx oxyCODONE /ACETAMINOPHEN [Percocet 1 tab PO Q4HR #30 tab 02/08/17 Unknown Rx 5/325] traMADol [Ultram 50 MG tab] 50 mg PO Q6HR PRN #20 tablet 08/08/18 Unknown Rx Allergies Allergy/AdvReac Type Severity Reaction Status Date / Time No Known Allergies Allergy Verified 08/08/18 13:17 ED Review of Systems ROS: Stated complaint: BACK PAIN Other details as noted in HPI Comment: All other systems reviewed and negative Constitutional: denies: fever, malaise Respiratory: denies: cough, shortness of breath Cardiovascular: denies: chest pain ED Past Medical Hx - Past Medical History Hx Hypertension: No Hx Congestive Heart Failure: No Hx Diabetes: No Hx Deep Vein Thrombosis: No Hx Renal Disease: No Hx Sickle Cell Disease: No Hx Seizures: No Hx Asthma: No Hx COPD: No Hx HIV: No - Surgical History Past Surgical History?: Yes Additional Surgical History: x1 - Social History Smoking Status: Never Smoker Substance Use Type: None - Medications Home Medications: Home Medications Medication Instructions Recorded Confirmed Last Taken Type Acetaminophen [Acetaminophen TAB] 500 mg PO Q8H PRN #15 tablet 09/06/16 Unknown Rx Azithromycin [Zithromax Z-LUCÍA] 250 mg PO DAILY #6 tab 09/06/16 Unknown Rx guaiFENesin [Mucinex] 600 mg PO BID #10 tab.er.12h 09/06/16 Unknown Rx Docusate Sodium [Colace] 100 mg PO BID PRN #30 capsule 02/08/17 Unknown Rx Ferrous Sulfate [Feosol 325 MG tab] 325 mg PO QDAY #30 tablet 02/08/17 Unknown Rx Ibuprofen [Motrin 800 MG tab] 800 mg PO Q8HR PRN #30 tablet 02/08/17 Unknown Rx oxyCODONE /ACETAMINOPHEN [Percocet 1 tab PO Q4HR #30 tab 02/08/17 Unknown Rx 5/325] traMADol [Ultram 50 MG tab] 50 mg PO Q6HR PRN #20 tablet 08/08/18 Unknown Rx ED Physical Exam - General Limitations: No Limitations General appearance: alert, in no apparent distress - Head Head exam: Present: atraumatic, normocephalic - Eye Eye exam: Present: normal appearance - ENT ENT exam: Present: mucous membranes moist - Neck Neck exam: Present: normal inspection. Absent: tenderness, meningismus - Respiratory Respiratory exam: Present: normal lung sounds bilaterally. Absent: respiratory distress, wheezes, rales, stridor - Cardiovascular Cardiovascular Exam: Present: regular rate, normal rhythm, normal heart sounds. Absent: systolic murmur, diastolic murmur, rubs, gallop - GI/Abdominal GI/Abdominal exam: Present: soft, normal bowel sounds. Absent: distended, tende rness, guarding, rebound - Extremities Exam Extremities exam: Present: normal inspection - Back Exam Back exam: Present: normal inspection - Neurological Exam Neurological exam: Present: alert, oriented X3 - Psychiatric Psychiatric exam: Present: normal affect, normal mood - Skin Skin exam: Present: warm, dry, intact, normal color. Absent: rash ED Course Vital Signs 08/08/18 13:25 Temperature 98 F Pulse Rate 118 H Respiratory 20 Rate Blood Pressure 161/117 O2 Sat by Pulse 97 Oximetry ED Medical Decision Making - Lab Data Result diagrams: 08/08/18 14:24 08/08/18 14:24 - Medical Decision Making Left lower back pain with no evidence of pneumonia on chest x-ray. D-dimer negative. No persistent pain to suspect pulmonary embolism. Prescribed tramadol Critical care attestation.: If time is entered above; I have spent that time in minutes in the direct care of this critically ill patient, excluding procedure time. ED Disposition Clinical Impression: Lumbar strain Disposition: DC-01 TO HOME OR SELFCARE Is pt being admited?: No Does the pt Need Aspirin: No Condition: Stable Instructions: Muscle Strain (ED) Prescriptions: traMADol [Ultram 50 MG tab] 50 mg PO Q6HR PRN #20 tablet PRN Reason: Pain Referrals: ELIZABETH WU MD [Staff Physician] - 3-5 Days Forms: Work/School Release Form(ED)
--- NOTE | 2018-08-08 14:14 | XRay Report ---
Chest 2 views: History: Cough. Back pain. Findings: Normal cardiomediastinal silhouette. Trachea is midline. No consolidation, pneumothorax or pleural effusion. Impression: No acute cardiopulmonary findings.
[2018-08-08 14:39] LABS: Basophils % (Auto) 0.7 % (0.0-1.8); Eosinophils % (Auto) 0.4 % (0.0-4.3); Hematocrit 35.9 % (30.3-42.9); Hemoglobin 11.8 gm/dl (10.1-14.3); Lymphocytes % (Auto) 42.8 % (13.4-35.0); Mean Corpuscular HGB Conc 33 % (30-34); Mean Corpuscular Volume 76 fl (79-97); Mean Platelet Volume 7.9 fl (6-12); Monocytes # (Auto) 0.4 K/mm3 (0.0-0.8); Monocytes % (Auto) 8.9 % (0.0-7.3); Platelet Count 322 K/mm3 (140-440); Red Cell Distribution Width 16.1 % (13.2-15.2)
[2018-08-08 15:05] LABS: BUN/Creatinine Ratio 14; Blood Urea Nitrogen 10 mg/dL (7-17); Calcium 9.3 mg/dL (8.4-10.2); Hemolysis Index 9
[2018-08-08 15:14] LABS: Bacteria,Urine 3+ /HPF (Negative); Bilirubin,Urine NEG (Negative); Blood,Urine NEG (Negative); Color,Urine Yellow (Yellow); Mucus,Urine FEW /HPF; Protein,Urine <15 mg/dL mg/dL (Negative); Urobilinogen,Urine < 2.0 mg/dL (<2.0)
== END 2018-08-08 15:12 | disposition home or self-care (01) ==
LOC: ED 13:13
DX: S39.012A Strain of muscle, fascia and tendon of lower back, initial encounter (principal); X58.XXXA Exposure to other specified factors, initial encounter; Y93.89 Activity, other specified; Y92.89 Other specified places as the place of occurrence of the external cause; Y99.8 Other external cause status
CPT/HCPCS: 36415; 71046; 80048; 81001; 85025; 85379

== ENCOUNTER 2018-08-21 18:32 | Emergency (ER) | payer MEDICAID ==
--- NOTE | 2018-08-21 20:02 | Emergency Department Report ---
Chief Complaint: Back Pain/Injury Stated Complaint: BACK/SIDE PAIN Time Seen by Provider: 08/21/18 20:02 - HPI History of Present Illness: This is a 33 y.o. female that presents with back pain that is all over for 3 weeks. Patient states she was seen here when symptoms started and prescribed tramadol which she never filled. She denies radiating pain, numbness or tingling, swelling, or bruising. - Exam Vital Signs: Vital Signs 08/21/18 20:02 Temperature 98.7 F Pulse Rate 84 Respiratory 16 Rate Blood Pressure 140/94 O2 Sat by Pulse 99 Oximetry MSE screening note: Focused history and physical exam performed. Due to findings the following was ordered: Urinalysis Fast track for further evaluation. ED Disposition for MSE Condition: Stable
[2018-08-21 20:05] VITALS: BP 140/94
--- NOTE | 2018-08-21 23:10 | Emergency Department Report ---
ED Back Pain/Injury HPI - General Chief Complaint: Back Pain/Injury Stated Complaint: BACK/SIDE PAIN Time Seen by Provider: 08/21/18 20:02 Source: patient Limitations: No Limitations - History of Present Illness Initial Comments: This is a 33 y.o. female that presents with back pain that is all over for 3 weeks. Patient states she was seen here when symptoms started and prescribed tramadol which she never filled. She denies radiating pain, numbness or tingling, swelling, or bruising. Complaint: back pain Onset/Timin -: Gradual, week(s) Similar Symptoms Previously: Yes Place: home Severity: moderate Severity scale (0 -10): 5 Quality: sharp Consistency: intermittent Improves With: none Worsens With: movement Associated Symptoms: denies: numbness, difficulty urinating, incontinence, fever/chills - Related Data Previous Rx's Medication Instructions Recorded Last Taken Type Acetaminophen [Acetaminophen TAB] 500 mg PO Q8H PRN #15 tablet 09/06/16 Unknown Rx Azithromycin [Zithromax Z-LUCÍA] 250 mg PO DAILY #6 tab 09/06/16 Unknown Rx guaiFENesin [Mucinex] 600 mg PO BID #10 tab.er.12h 09/06/16 Unknown Rx Docusate Sodium [Colace] 100 mg PO BID PRN #30 capsule 02/08/17 Unknown Rx Ferrous Sulfate [Feosol 325 MG tab] 325 mg PO QDAY #30 tablet 02/08/17 Unknown Rx Ibuprofen [Motrin 800 MG tab] 800 mg PO Q8HR PRN #30 tablet 02/08/17 Unknown Rx oxyCODONE /ACETAMINOPHEN [Percocet 1 tab PO Q4HR #30 tab 02/08/17 Unknown Rx 5/325] traMADol [Ultram 50 MG tab] 50 mg PO Q6HR PRN #20 tablet 08/08/18 Unknown Rx Ibuprofen 800 mg PO TID PRN #30 tablet 08/22/18 Unknown Rx Nitrofurantoin Monohyd/M-Cryst 100 mg PO BID 7 Days #14 capsule 08/22/18 Unknown Rx [Macrobid 100 mg Capsule] Allergies Allergy/AdvReac Type Severity Reaction Status Date / Time No Known Allergies Allergy Verified 08/08/18 13:17 ED Review of Systems ROS: Stated complaint: BACK/SIDE PAIN Other details as noted in HPI Constitutional: denies: chills, fever Eyes: denies: eye pain, eye discharge, vision change ENT: denies: ear pain, throat pain Respiratory: denies: cough, shortness of breath, wheezing Cardiovascular: denies: chest pain, palpitations Endocrine: no symptoms reported Gastrointestinal: denies: abdominal pain, nausea, diarrhea Genitourinary: urgency, dysuria, frequency. denies: hematuria, discharge, abnormal menses, dyspareunia Musculoskeletal: back pain. denies: joint swelling, arthralgia Skin: denies: rash, lesions Neurological: denies: headache, weakness, numbness, paresthesias, confusion, vertigo Psychiatric: denies: anxiety, depression Hematological/Lymphatic: denies: easy bleeding, easy bruising ED Past Medical Hx - Past Medical History Hx Hypertension: No Hx Congestive Heart Failure: No Hx Diabetes: No Hx Deep Vein Thrombosis: No Hx Renal Disease: No Hx Sickle Cell Disease: No Hx Seizures: No Hx Asthma: No Hx COPD: No Hx HIV: No - Surgical History Additional Surgical History: x1 - Social History Smoking Status: Never Smoker Substance Use Type: None - Medications Home Medications: Home Medications Medication Instructions Recorded Confirmed Last Taken Type Acetaminophen [Acetaminophen TAB] 500 mg PO Q8H PRN #15 tablet 09/06/16 Unknown Rx Azithromycin [Zithromax Z-LUCÍA] 250 mg PO DAILY #6 tab 09/06/16 Unknown Rx guaiFENesin [Mucinex] 600 mg PO BID #10 tab.er.12h 09/06/16 Unknown Rx Docusate Sodium [Colace] 100 mg PO BID PRN #30 capsule 02/08/17 Unknown Rx Ferrous Sulfate [Feosol 325 MG tab] 325 mg PO QDAY #30 tablet 02/08/17 Unknown Rx Ibuprofen [Motrin 800 MG tab] 800 mg PO Q8HR PRN #30 tablet 02/08/17 Unknown Rx oxyCODONE /ACETAMINOPHEN [Percocet 1 tab PO Q4HR #30 tab 02/08/17 Unknown Rx 5/325] traMADol [Ultram 50 MG tab] 50 mg PO Q6HR PRN #20 tablet 08/08/18 Unknown Rx Ibuprofen 800 mg PO TID PRN #30 tablet 08/22/18 Unknown Rx Nitrofurantoin Monohyd/M-Cryst 100 mg PO BID 7 Days #14 capsule 08/22/18 Unknown Rx [Macrobid 100 mg Capsule] ED Physical Exam - General Limitations: No Limitations General appearance: alert, in no apparent distress - Head Head exam: Present: atraumatic, normocephalic - Eye Eye exam: Present: normal appearance, PERRL, EOMI Pupils: Present: normal accommodation - ENT ENT exam: Present: normal exam - Neck Neck exam: Present: normal inspection, full ROM - Respiratory Respiratory exam: Present: normal lung sounds bilaterally. Absent: respiratory distress, wheezes, stridor, chest wall tenderness - Cardiovascular Cardiovascular Exam: Present: regular rate, normal rhythm, normal heart sounds. Absent: systolic murmur, diastolic murmur, rubs, gallop - GI/Abdominal GI/Abdominal exam: Present: soft, normal bowel sounds - Rectal Rectal exam: Present: deferred - Extremities Exam Extremities exam: Present: normal inspection - Back Exam Back exam: Present: normal inspection, full ROM, tenderness, CVA tenderness (R). Absent: CVA tenderness (L), muscle spasm, paraspinal tenderness, vertebral tenderness, rash noted - Neurological Exam Neurological exam: Present: alert, oriented X3, CN II-XII intact, normal gait, reflexes normal - Psychiatric Psychiatric exam: Present: normal affect, normal mood - Skin Skin exam: Present: warm, dry, intact, normal color. Absent: rash ED Course Vital Signs 08/21/18 20:02 Temperature 98.7 F Pulse Rate 84 Respiratory 16 Rate Blood Pressure 140/94 O2 Sat by Pulse 99 Oximetry ED Medical Decision Making - Lab Data Result diagrams: 08/21/18 22:45 08/21/18 22:45 Labs 08/21/18 08/21/18 08/21/18 22:45 22:45 22:46 WBC 12.0 H RBC 4.82 Hgb 11.7 Hct 37.2 MCV 77 L MCH 24 L MCHC 32 RDW 15.8 H Plt Count 430 Lymph # Denitrator Operator Sodium 138 Potassium 4.1 Chloride 98.4 Carbon Dioxide 26 Anion Gap 18 BUN 17 Creatinine 0.7 Estimated GFR > 60 BUN/Creatinine Ratio 24 Glucose 93 Calcium 10.0 Urine Color Straw Urine Turbidity Clear Urine pH 6.0 Ur Specific [place] 1.006 Urine Protein <15 mg/dl Urine Glucose (UA) Neg Urine Ketones Neg Urine Blood Neg Urine Nitrite Neg Ur Reducing Substances Not Reportable Urine Bilirubin Neg Urine Ictotest Not Reportable Urine Urobilinogen < 2.0 Ur Leukocyte Esterase Neg Urine WBC (Auto) 1.0 Urine RBC (Auto) < 1.0 U Epithel Cells (Auto) 3.0 Urine Bacteria (Auto) 4+ Urine HCG, Qual Negative - Medical Decision Making Ua: pos for bacteria, wbc: 12 given urinary frequency, normal bmp, no vaginal discharge no hematuria no fever no chills pain improved with nsaids, plan macrobid x 10 days ibuprofen prn pain follow up with pcp in 2-3 days return to ed if symptoms worsen. Critical care attestation.: If time is entered above; I have spent that time in minutes in the direct care of this critically ill patient, excluding procedure time. ED Disposition Clinical Impression: Dysuria Disposition: - TO HOME OR SELFCARE Is pt being admited?: No Does the pt Need Aspirin: No Condition: Stable Instructions: Dysuria (ED) Prescriptions: Ibuprofen 800 mg PO TID PRN #30 tablet PRN Reason: pain Nitrofurantoin Monohyd/M-Cryst [Macrobid 100 mg Capsule] 100 mg PO BID 7 Days #14 capsule Referrals: PETER LEÓN MD [Primary Care Provider] - 3-5 Days Forms: Work/School Release Form(ED) Time of Disposition: 00:21
[2018-08-21 23:17] LABS: Hematocrit 37.2 % (30.3-42.9); Hemoglobin 11.7 gm/dl (10.1-14.3); Mean Corpuscular HGB Conc 32 % (30-34); Mean Corpuscular Volume 77 fl (79-97); Platelet Count 430 K/mm3 (140-440); Red Blood Count 4.82 M/mm3 (3.65-5.03); Red Cell Distribution Width 15.8 % (13.2-15.2)
[2018-08-21 23:22] LABS: HCG Qualitative,Urine Negative (Negative)
[2018-08-21 23:24] LABS: Bacteria,Urine 4+ /HPF (Negative); Bilirubin,Urine NEG (Negative); Blood,Urine NEG (Negative); Color,Urine Straw (Yellow); Protein,Urine <15 mg/dL mg/dL (Negative); RBC,Urine < 1.0 /HPF (0.0-6.0); Urobilinogen,Urine < 2.0 mg/dL (<2.0)
[2018-08-21 23:32] LABS: BUN/Creatinine Ratio 24; Blood Urea Nitrogen 17 mg/dL (7-17); Hemolysis Index 8
[2018-08-22 00:47] LABS: Total Cells Counted 100
[2018-08-22 00:48] LABS: Hypochromasia 1+; Platelet Estimate Consistent w Auto
== END 2018-08-22 00:26 | disposition home or self-care (01) ==
LOC: ED 18:32
DX: M54.9 Dorsalgia, unspecified (principal); R30.0 Dysuria
CPT/HCPCS: 36415; 80048; 81001; 81025; 85007; 85025